=== PATIENT | female | born 1995 | race Caucasian/White ===

== ENCOUNTER 2022-03-25 19:18 | Emergency (ER) | payer BC, SELFPAY ==
[2022-03-25] VITALS (27 sets, daily range): BP systolic 104–123; BP diastolic 65–88; PULSE 86–129; RESP 12–24; TEMP 36.5–36.6; O2SAT 94–98
--- NOTE | 2022-03-25 19:54 | ED.GENADUL_ITS ---
Discharge Plan Disposition Patient Disposition: Home Condition: Improving Discharge Details Clinical Impression: Nausea & vomiting Primary Care Provider: Cecily,Local ED Provider: John Odell Home Meds and New Rx's Prescriptions: New ondansetron 4 mg tablet,disintegrating 4 mg PO TID PRN3 Days Qty: 9 0RF Continued Contol Discharge Instructions Instructions: Acute Nausea and Vomiting (ED) Additional Instructions: Work-up in the ER does not reveal any obvious emergent process. Zofran as directed. Clear liquid diet, advance as tolerated. Please watch for new or worsening symptoms and return to the ER for any concerns. Lastly, I have placed you on the care management list to help expedite outpatient primary care follow- up. Medical Decision Making 27-year-old female who denies significant past medical history, does use marijuana every other day or so, reports similar episode roughly 2 weeks ago, had full resolution of her symptoms, now over the past 12 hours has had nausea and vomiting. Denies fever, sick contacts or bad food exposure. Clinically she appears well, nontoxic, slightly dry. Will obtain IV access, give IV fluid, Zofran, obtain routine screening laboratory values and reassess. Abdomen is soft, nontender, certainly nonsurgical. Patient receiving IV fluid, reports Zofran has helped greatly. Now able to tolerate p.o. intake, a popsicle. Heart rate now 106. Laboratory values reveal mild nonspecific leukocytosis of 13.83. Electrolytes unremarkable. Creatinine 0.8 with a GFR of 104.80. Total bili minimally elevated at 1.1. LFTs otherwise unremarkable, lipase 65. Urinalysis does reveal 40 ketones but no signs of infection. POC negative Repeat heart rate of 93. Patient agreeable to receiving another liter of IV fluid. Discussed work-up with patient. Examination not consistent with acute appendicitis, cholecystitis, etc. At this time no clear indication to obtain emergent CT imaging. Patient reports that she feels well, now asymptomatic. She is comfortable being discharged home with a Zofran take-home pack, I will place her on the care management list of expedite outpatient follow-up. We also discussed strict signs and symptoms to watch for and return immediately. Strict discharge and return precautions were provided. Patient understands, is agreeable to this plan, and has no additional questions or concerns upon discharge. This documentation was generated using [employer] system, please disregard any oddities of phrase or misspellings. Medical Records Medical records reviewed: Yes I reviewed the patient's medical records. Lab Data Lab results reviewed: Yes I reviewed the patient's lab results. Labs: Laboratory Tests Range/Units 03/25/22 03/25/22 03/25/22 19:46 20:00 20:00 WBC (4.4-10.8) 10^3/uL 13.83 H RBC (3.93-5.22) 10^6/uL 4.74 Hgb (11.2-15.7) g/dL 13.8 Hct (36.0-46.0) % 40.4 MCV (80-95) fL 85 MCH (27.0-33.0) pg 29.1 MCHC (32.0-36.0) % 34.2 RDW (11.7-14.6) % 11.9 Plt Count (130-400) 10^3/uL 315 MPV (8.0-11.0) fL 8.7 Immature Gran % 0.4 Neutrophils % 82.9 Lymphocytes % 9.9 Monocytes % 6.5 Eosinophils % 0.1 Basophils % 0.2 Nucleated RBC % (0.0-0.3) % 0.0 Absolute Neutrophils (1.2-6.7) 10^3/uL 11.47 H Absolute Lymphocytes (1.2-3.4) 10^3/uL 1.37 Absolute Monocytes (0.1-0.8) 10^3/uL 0.90 H Absolute Eosinophils (0.0-0.7) 10^3/uL 0.01 Absolute Basophils (0.0-0.2) 10^3/uL 0.03 Sodium (136-145) mmol/L 136 Potassium (3.5-5.1) mmol/L 3.5 Chloride (98-107) mmol/L 102 Carbon Dioxide (21.0-32.0) mmol/L 24.3 Anion Gap (3-11) mmol/L 9.7 BUN (7-18) mg/dL 9 Creatinine (0.55-1.02) mg/dL 0.8 Est GFR (CKD-EPI 2020) (mL/min/1.73m2) 104.80 Glucose (74-106) mg/dL 105 Calcium (8.5-10.1) mg/dL 9.2 Total Bilirubin (0.2-1.0) mg/dL 1.1 H AST (15-37) U/L 19 ALT (14-59) U/L 21 Alkaline Phosphatase (46-116) U/L 88 Total Protein (6.4-8.2) g/dL 8.8 H Albumin (3.4-5.0) g/dL 4.4 Lipase (73-393) U/L 65 Urine Color (Yellow) Yellow Urine Clarity (Clear) Sl Cloudy Urine pH (5-8) 6.0 Ur Specific [place] (1.005-1.025) >= 1.030 H Urine Protein (Negative) mg/dL 30 H Urine Ketones (Negative) mg/dL 40 H Urine Blood (Negative) Trace-intact H Urine Nitrite (Negative) Negative Urine Bilirubin (Negative) Small H Urine Urobilinogen (Up TO 0.2) EU/dL 1.0 H Ur Leukocyte Esterase (Negative) Negative Urine RBC (0-2) HPF 0-2 Urine WBC (0-5) HPF 3-5 Ur Epithelial Cells (Negative) HPF Moderate Urine Crystals (Negative) HPF Negative Urine Bacteria (Negative) HPF Few Urine Casts (Negative) LPF Negative Urine Mucus (Negative) Trace Ur Culture Indicated? No/Sq. Contamination Urine Glucose (Negative) mg/dL Negative HPI General Mode of arrival: ambulatory . Date/Time Provider Initiated Documentation: 03/25/22 19:19 . Limitations to Documentation: no limitations . Information obtained by: patient . History of Present Illness 27 year old F presents to the emergency department with the chief complaint of Nausea and vomiting, described as moderate, with intensity rated at 4. Quality is described as aching (Only after vomiting), and is localized to the abdomen. Patient reports no radiation. Patient started experiencing this hour(s) (12) and it has been constant. No relieving factors improve symptom(s), Eating worsens symptoms . Patient notes other (1 episode of diarrhea). Patient did receive the following treatments prior to arrival, none Related Data Home Medications Medication Instructions Recorded Confirmed Contol 11/01/14 11/01/14 ondansetron 4 mg disintegrating 4 mg PO TID PRN 3 days #9 tabs 03/25/22 tablet Previous Rx's Medication Instructions Recorded ondansetron 4 mg disintegrating 4 mg PO TID PRN 3 days #9 tabs 03/25/22 tablet Allergies Allergy/AdvReac Type Severity Reaction Status Date / Time No Known Allergies Allergy Unverified 11/01/14 16:20 General Stated Complaint: Nausea/Vomit/Diar LOREN: 4 Review of Systems Constitutional Constitutional: Denies fever(s) ENT Ears, Nose, Mouth, and Throat: Denies neck pain Cardiovascular Cardiovascular: Denies chest pain and Denies dyspnea Respiratory Respiratory: Denies cough and Denies dyspnea Gastrointestinal Gastrointestinal: Reports abdominal pain, Reports diarrhea, Reports nausea and Reports vomiting Genitourinary Genitourinary: Denies dysuria and Denies vaginal discharge Musculoskeletal Musculoskeletal: Denies back pain and Denies neck pain Integumentary/Breasts Skin/Breast: Denies rash PFSH All Active Problems (Updated 03/25/22 @ 21:09 by STONEY Peters) Nausea & vomiting (Acute) Social History Smoking/Tobacco Use Status: Never Smoking risk assessment performed?: Yes Drug use: Never Do you feel safe at home: Yes Do you feel safe in your relationship?: Yes Exam Const General: cooperative, healthy appearing, comfortable and no acute distress Orientation: alert and awake HENMT Head: normal to inspection, normocephalic and atraumatic Face and sinus: normal facial exam Mouth: moist mucous membranes abnormal (Slightly dry) Eyes General: appearance normal, both eyes and all related structures Conjunctivae: conjunctivae normal Neck Neck: normal visual inspection, full ROM, no meningeal signs, trachea midline and supple Resp Effort & Inspection: normal respiratory effort and able to speak in complete sentences Auscultation: clear to auscultation bilaterally Cardio Rate: tachycardic (114) Rhythm: regular rhythm GI Inspection: normal to inspection Palpation: soft, not firm, no guarding, no pulsatile masses and nontender Auscultation: normal bowel sounds Back/Spine/Pelvis Back: no CVA tenderness and No back tenderness Skin General skin exam: no rashes or lesions noted Neuro General: patient alert, patient awake, moves all extremities and no focal motor deficits Cognition: normal cognition Speech: speech normal Gait: normal gait Sensory Exam: no sensory deficits noted Psych Appearance: grossly normal Mental Status: mental status grossly normal Course Vital Signs Vital signs: Vital Signs Temperature 36.6 C 03/25/22 19:38 Pulse 129 H 03/25/22 19:38 Respiratory Rate 24 03/25/22 19:38 Blood Pressure 114/88 03/25/22 19:38 Pulse Oximetry 98 03/25/22 19:38 Temperature 36.6 C 03/25/22 19:38 Temperature Source Temporal Artery Scan 03/25/22 19:38 Pulse 129 H 03/25/22 19:38 Respiratory Rate 24 03/25/22 19:38 Blood Pressure 114/88 03/25/22 19:38 Blood Pressure Position Sitting 03/25/22 19:38 Pulse Oximetry 98 03/25/22 19:38 Oxygen Delivery Method Room Air 03/25/22 19:38 Oxygen Flow Rate 0 03/25/22 19:38
[2022-03-25 20:00] LABS: Bilirubin Small (Negative); Blood Trace-intact (Negative); Clarity Sl Cloudy (Clear); Glucose Negative (Negative); Ketones 40 mg/dL (Negative); Leukocyte Esterase Negative (Negative); Nitrite Negative (Negative); Specific Gravity >= 1.030 (1.005-1.025)
[2022-03-25] MEDS: Ondansetron 4 MG/2 ML VIAL IVP (20:07)
[2022-03-25 20:08] LABS: Abs Immature Grans 0.05 10^3/uL (0.0-0.06); Absolute Basophil Count 0.03 10^3/uL (0.0-0.2); Absolute Eosinophil Count 0.01 10^3/uL (0.0-0.7); Absolute Lymphocyte Count 1.37 10^3/uL (1.2-3.4); Absolute Neutrophil Count 11.47 10^3/uL (1.2-6.7); Basophils % 0.2; Eosinophils % 0.1; HCT 40.4 % (36.0-46.0); HGB 13.8 g/dL (11.2-15.7); Immature Grans % 0.4; Lymphocytes % 9.9; MCH 29.1 pg (27.0-33.0); MCHC 34.2 % (32.0-36.0); MCV 85 fL (80-95); MPV 8.7 fL (8.0-11.0); Monocytes % 6.5; Neutrophils % 82.9; Platelet Count 315 10^3/uL (130-400); RBC 4.74 10^6/uL (3.93-5.22); RDW 11.9 % (11.7-14.6); RDW-SD 37.4 fL; WBC 13.83 10^3/uL (4.4-10.8)
[2022-03-25] MEDS: Normal Saline 1,000 ML 1000 ML IV ×2 (20:08→21:26)
[2022-03-25 20:09] LABS: Bacteria Few HPF (Negative); C & S Indicated? No/Sq. Contamination; Casts Negative LPF (Negative); Crystals Negative HPF (Negative); Epithelial Cells Moderate HPF (Negative); Mucus Trace (Negative); RBC 0-2 HPF (0-2)
[2022-03-25 20:22] LABS: ALT 21 U/L (14-59); AST 19 U/L (15-37); Albumin 4.4 g/dL (3.4-5.0); Alkaline Phosphatase 88 U/L (46-116); Anion Gap 9.7 mmol/L (3-11); BUN 9 mg/dL (7-18); Bilirubin, Total 1.1 mg/dL (0.2-1.0); CO2 24.3 mmol/L (21.0-32.0); CREATININE 0.8 mg/dL (0.55-1.02); Calcium 9.2 mg/dL (8.5-10.1); Chloride 102 mmol/L (98-107); Glucose 105 mg/dL (74-106); Lipase 65 U/L (73-393); Potassium 3.5 mmol/L (3.5-5.1); Sodium 136 mmol/L (136-145); Total Protein 8.8 g/dL (6.4-8.2)
[2022-03-25] MEDS: Ondansetron O.D.T. 4 MG TABEF, 3 TABS/BTL PO (21:27)
== END 2022-03-25 23:13 | disposition home or self-care (01) ==
PROVIDERS: Emergency Provider Physician Assistant
DX: R11.2 Nausea with vomiting, unspecified (principal); D72.829 Elevated white blood cell count, unspecified; E80.7 Disorder of bilirubin metabolism, unspecified
CPT/HCPCS: 80053; 81025; 83690; 96361; 96374; 99284; 81003; 81015; 85025; J2405

== ENCOUNTER 2022-09-24 11:57 | Outpatient (REF) | payer BC, SELFPAY ==
--- NOTE | 2022-09-24 11:45 | PAPFT_PTH ---
PATIENT: Ibeth Padgett LOC: [place] U#:[id number] AGE/SX: 27/F ROOM: RE09/24/[address]: Juliocesar Smith DNP : 1995 BED: DIS: 09/24/2022 SPEC #: [id number] RECD: 09/25/22 12:43 STATUS: ALICE REQ #: [id number] VINCENZO: 09/24/22 11:[address]: Juliocesar Webber DEPT: [facility] Cytology RECD BY: Hamida Fonseca Tissues: 1 - CX/ENDOCX FOR PAP SMEARS Procedures: PAP THIN PREP/[facility] Screening Comments: [id number]
== END 2022-09-24 11:58 | disposition home or self-care (01) ==
LOC: LBN 11:57
PROVIDERS: PCP Nurse Practitioner Family; Visit Provider Nurse Practitioner Family
DX: Z12.4 Encounter for screening for malignant neoplasm of cervix (principal)
CPT/HCPCS: 88142

== ENCOUNTER 2024-07-23 13:51 | Emergency (ER) | payer OTHER, BC, SELFPAY ==
[2024-07-23 13:52] VITALS: BP 120/88; PULSE 103; RESP 16; TEMP 37.2; O2SAT 99
--- NOTE | 2024-07-23 14:00 | DI.RAD_ITS ---
Exam(s) XR FOREARM RT XR SHOULDER RT COMPLETE 2+V XR HUMERUS RT EXAM: XR HUMERUS RT CLINICAL HISTORY: pain s/p fall. TECHNIQUE: 2D digital imaging was performed. COMPARISON: CR XR SHOULDER RT COMPLETE 2+V from 07/23/2024 CR XR FOREARM RT from 07/23/2024 FINDINGS: BONES: No acute fracture is present. No bony destructive lesion is seen. The wrist, elbow and shoulde r joints are unremarkable. SOFT TISSUE: Normal. IMPRESSION: Unremarkable radiographs of the right humerus, forearm and shoulder. DATA REPOSITORY: RADIATION DOSE DELIVERED:
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
--- NOTE | 2024-07-23 14:23 | W.EDPROG ---
Date of service: 07/23/24 Time of Service: 14:23 Medical Decision Making I initially signed up to evaluate this patient but I did not see her nor participate in her care. Quality:SDOH Health Related Social Needs: No Data to Display Discharge Plan Discharge Details Chief Complaint: Orthopedic Primary Care Provider: Juliocesar Webber ED Provider: Willie Lyon Home Meds and New Rx's Prescriptions: No Action One-A-Day Women's Complete(vK) 18 mg-400 mcg- 25 mcg tablet 1 tab PO DAILY
[2024-07-23] MEDS: Ibuprofen 600 MG TAB PO (14:56)
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
== END 2024-07-23 15:59 | disposition home or self-care (01) ==
PROVIDERS: Emergency Provider Emergency Medicine; PCP Nurse Practitioner Family
DX: S43.401A Unspecified sprain of right shoulder joint, initial encounter (principal); V18.0XXA Pedal cycle driver injured in noncollision transport accident in nontraffic accident, initial encounter
CPT/HCPCS: 99284; 99283; 00123; 73030; 73060; 73090

== ENCOUNTER 2024-08-21 00:43 | Outpatient (CLI) | payer OTHER, BC, SELFPAY ==
--- NOTE | 2024-08-21 07:45 | DI.MRI_ITS ---
Exam(s) MR UPPER JOINT RT WO EXAM: MR UPPER JOINT RT WO CLINICAL HISTORY: ? torn RTC, sprain rt shoulder, [id number]. TECHNIQUE: Multiplanar multisequence MRI was performed. COMPARISON: CR XR SHOULDER RT COMPLETE 2+V from 07/23/2024 FINDINGS: BONES: There is no evidence of a fracture. There is marrow edema seen in the humeral head which may represent a contusion. There is some flattening of the posterolateral aspect of the humeral head. T his raises a question of a prior anterior shoulder dislocation. Please correlate with the patient's clinical history. JOINTS: The acromioclavicular joint is normal. The glenohumeral joint is normal. No joint effusion is present. TENDONS: Supraspinatus: Unremarkable. Infraspinatus: Unremarkable. Subscapularis: Unremarkable. [place]: Unremarkable. Biceps and [place]: Unremarkable. MUSCLES: Unremarkable. No evidence of muscular fatty atrophy. GLENOID LABRUM: Unremarkable on this noncontrast examination. SOFT TISSUES: Unremarkable. LIGAMENTS: Unremarkable. OTHER: Subacromial and subdeltoid bursae are unremarkable. IMPRESSION: 1. Edema seen in the humeral head particularly posterior laterally with question of flattening of the posterolateral humeral head. This can be seen with a Hill-Sachs deformity and a prior anterior shou lder dislocation. Please correlate with the patient's clinical history. 2. No evidence of a rotator cuff or labral tear on this noncontrast examination. DATA REPOSITORY:
== END 2024-08-21 01:03 ==
LOC: DI 00:43
PROVIDERS: PCP Nurse Practitioner Family; Visit Provider Nurse Practitioner Family
DX: S43.401A Unspecified sprain of right shoulder joint, initial encounter (principal)
CPT/HCPCS: 73221

== ENCOUNTER 2024-10-02 12:34 | Emergency (ER) | payer BC, SELFPAY ==
[2024-10-02] VITALS (31 sets, daily range): BP systolic 101–156; BP diastolic 65–97; PULSE 57–105; RESP 12–33; TEMP 36.8; O2SAT 97–100
--- NOTE | 2024-10-02 12:30 | RT.EKG_ITS ---
APPROVED REPORT Exam: Resting ECG Reason for Exam: chest pain Patient Location: E HR:61 bpm ECG Measurements Heart Rate 61 AXIS [place] 127 P 23 QRSd 85 QRS 59 QT 393 T 35 QTc 397 Conclusion Sinus rhythm...normal P axis, V-rate 60- 99
[2024-10-02] MEDS: Ondansetron 4 MG/2 ML VIAL IVP (13:09)
[2024-10-02] MEDS: Lactated Ringers 1,000 ML 1000 ML IV (13:09)
[2024-10-02] MEDS: LORazepam 20 MG/10 ML VIAL IVP (13:11)
[2024-10-02 13:14] LABS: Abs Immature Grans 0.03 10^3/uL (0.0-0.06); HCT 36.3 % (36.0-46.0); HGB 12.6 g/dL (11.2-15.7); Immature Grans % 0.3 %; MCH 29.5 pg (27.0-33.0); MCHC 34.7 % (32.0-36.0); MCV 85 fL (80-95); MPV 9.4 fL (8.0-11.0); Platelet Count 307 10^3/uL (130-400); RBC 4.27 10^6/uL (3.93-5.22); RDW 12.3 % (11.7-14.6); RDW-SD 36.9 fL; WBC 11.19 10^3/uL (4.4-10.8)
[2024-10-02 13:42] LABS: ALT 34 U/L (14-59); AST 35 U/L (15-37); Albumin 4.3 g/dL (3.4-5.0); Alkaline Phosphatase 65 U/L (46-116); Anion Gap 16.8 mmol/L (3-11); BUN 15 mg/dL (7-18); Bilirubin, Total 1.8 mg/dL (0.2-1.0); CO2 20.2 mmol/L (21.0-32.0); Calcium 9.0 mg/dL (8.5-10.1); Chloride 106 mmol/L (98-107); Estimated GFR 121.49 (mL/min/1.73m2); Glucose 118 mg/dL (74-106); HCG Qual (Serum) Negative; Lipase 21 U/L (<78); Magnesium 2.1 mg/dL (1.8-2.4); Potassium 3.7 mmol/L (3.5-5.1); Sodium 143 mmol/L (136-145); Total Protein 7.7 g/dL (6.4-8.2); Troponin I 4 ng/L (<or=51)
[2024-10-02 13:45] LABS: D-Dimer 166 ng/mlFEU (<500)
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
[2024-10-02] MEDS: Droperidol 5 MG/2 ML VIAL 1.25 MG IVP (13:55)
[2024-10-02] MEDS: Famotidine 20 MG TAB PO (14:20)
[2024-10-02] MEDS: DEXTROSE 5%-0.9% SALINE 1,000 ML 200 ML IV (14:28)
[2024-10-02 14:44] LABS: Troponin I 4 ng/L (<or=51)
--- NOTE | 2024-10-02 15:15 | DI.RAD_ITS ---
Exam(s) XR CHEST 2V PA LATERAL EXAM: XR CHEST 2V PA LATERAL CLINICAL HISTORY: chest pain TECHNIQUE: 2D digital imaging was performed of the chest. Two images were obtained. PA and lateral views were obtained. COMPARISON: No exams were available for comparison FINDINGS: MEDIASTINUM: Normal. HEART: Normal. PULMONARY VASCULATURE: Normal. LUNGS: Clear. PLEURAL SPACE: No pleural effusion or pneumothorax. BONE:Within normal limits for the patient's age. OTHER FINDINGS:Normal. IMPRESSION: No acute pulmonary findings. DATA REPOSITORY: RADIATION DOSE DELIVERED:
== END 2024-10-02 16:29 | disposition home or self-care (01) ==
PROVIDERS: Emergency Provider Student in an Organized Health Care Education/Training Program; PCP Nurse Practitioner Family
DX: R07.9 Chest pain, unspecified (principal); R11.2 Nausea with vomiting, unspecified
CPT/HCPCS: 36415; 80053; 83690; 93005; 96361; 96374; 96375; 99285; 71046; 83735; 84484; 84703; 85025; 85379; 93010; 99284; J1790; J2060; J2405; J7042

== ENCOUNTER 2024-10-03 09:59 | Emergency (ER) | payer BC, SELFPAY ==
[2024-10-03] VITALS (35 sets, daily range): BP systolic 127–153; BP diastolic 60–97; PULSE 74–91; RESP 11–28; TEMP 36.1–36.2; O2SAT 97–100
[2024-10-03 10:27] LABS: BE (Venous) -1 mmol/L (-2-3); HCO3 (Venous) 22 mmol/L (23-28); O2 Sat (Venous) 73 %; TCO2 (Venous) 19 mmol/L (24-29); pCO2 (Venous) 28 mmHg (41-51); pO2 (Venous) 34 mmHg
[2024-10-03 10:29] LABS: Abs Immature Grans 0.03 10^3/uL (0.0-0.06); HCT 36.1 % (36.0-46.0); HGB 12.4 g/dL (11.2-15.7); Immature Grans % 0.3 %; MCH 29.0 pg (27.0-33.0); MCHC 34.3 % (32.0-36.0); MCV 84 fL (80-95); MPV 9.3 fL (8.0-11.0); Platelet Count 302 10^3/uL (130-400); RBC 4.28 10^6/uL (3.93-5.22); RDW 11.9 % (11.7-14.6); RDW-SD 36.4 fL; WBC 9.05 10^3/uL (4.4-10.8)
[2024-10-03] MEDS: Prochlorperazine 10 MG/2 ML VIAL IVP (10:29)
[2024-10-03] MEDS: diphenhydrAMINE 50 MG/ML VIAL 25 MG IVP (10:30)
[2024-10-03] MEDS: Famotidine 20 MG/2 ML VIAL IVP (10:30)
--- NOTE | 2024-10-03 10:30 | RT.EKG_ITS ---
APPROVED REPORT Exam: Resting ECG Reason for Exam: qtc Patient Location: E HR:79 bpm ECG Measurements Heart Rate 79 AXIS [place] 121 P 39 QRSd 79 QRS 58 QT 414 T 14 QTc 476 Conclusion Sinus rhythm, rate 79 No significant interval abnormalities although compared to prior, QTc has increased from 397 to 476ms No STEMI
[2024-10-03 10:46] LABS: ALT 50 U/L (14-59); AST 35 U/L (15-37); Albumin 4.4 g/dL (3.4-5.0); Alkaline Phosphatase 67 U/L (46-116); Anion Gap 16.7 mmol/L (3-11); BUN 13 mg/dL (7-18); Bilirubin, Total 1.5 mg/dL (0.2-1.0); CO2 21.3 mmol/L (21.0-32.0); Calcium 9.2 mg/dL (8.5-10.1); Chloride 103 mmol/L (98-107); Estimated GFR 89.86 (mL/min/1.73m2); Glucose 135 mg/dL (74-106); Lipase 27 U/L (<78); Magnesium 1.8 mg/dL (1.8-2.4); Potassium 3.1 mmol/L (3.5-5.1); Sodium 141 mmol/L (136-145); Total Protein 7.9 g/dL (6.4-8.2)
[2024-10-03] MEDS: DEXTROSE 5%-0.9% SALINE 1,000 ML 125 ML IV (10:53)
[2024-10-03] MEDS: Normal Saline 1,000 ML 1000 ML IV ×2 (11:27→12:44)
[2024-10-03] MEDS: POTASSIUM CHLORIDE 10 MEQ/100 ML BAG 100 MEQ IV_INF (11:45)
[2024-10-03] MEDS: Ketorolac 15 MG/ML VIAL 7.5 MG IVP (12:30)
[2024-10-03 13:39] LABS: Glucose Negative (Negative)
[2024-10-03] MEDS: MYLANTA 30 ML, LIDOCAINE 2% VISCOUS UD 15 ML PO (13:52)
[2024-10-03] MEDS: Scopolamine 1 MG/3 DAYS PATCH TD (14:52)
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
== END 2024-10-03 14:58 | disposition home or self-care (01) ==
PROVIDERS: Emergency Provider Physician Assistant; PCP Nurse Practitioner Family
DX: R11.2 Nausea with vomiting, unspecified (principal); R19.7 Diarrhea, unspecified
CPT/HCPCS: 99284 ×2; 96374; 96375; 36415; 80053; 82805; 83690; 93005; 96361; 81003; 83735; 85025; 93010; J0780; J1200; J1885; J3480; J7042

== ENCOUNTER 2024-10-04 04:57 | Inpatient (IN) | payer BC, OTHER, SELFPAY ==
[2024-10-04] VITALS (25 sets, daily range): BP systolic 120–152; BP diastolic 77–114; PULSE 67–81; RESP 13–24; TEMP 36.4–37.3; O2SAT 97–100
[2024-10-04 06:00] LABS: Abs Immature Grans 0.02 10^3/uL (0.0-0.06); HCT 33.0 % (36.0-46.0); HGB 11.7 g/dL (11.2-15.7); Immature Grans % 0.2 %; MCH 29.5 pg (27.0-33.0); MCHC 35.5 % (32.0-36.0); MCV 83 fL (80-95); MPV 9.4 fL (8.0-11.0); Platelet Count 275 10^3/uL (130-400); RBC 3.96 10^6/uL (3.93-5.22); RDW 11.9 % (11.7-14.6); RDW-SD 36.2 fL; WBC 9.07 10^3/uL (4.4-10.8)
[2024-10-04 06:20] LABS: HCG Qual (Serum) Negative
[2024-10-04] MEDS: Normal Saline 1,000 ML 1000 ML IV (06:20)
[2024-10-04] MEDS: Dexamethasone 4 MG/ML VIAL IVP (06:21)
[2024-10-04] MEDS: Droperidol 5 MG/2 ML VIAL 1.25 MG IVP ×2 (06:21→08:38)
[2024-10-04] MEDS: cefTRIAXone 1 GM/50 ML BAG IVPB (06:21)
[2024-10-04 06:23] LABS: ALT 56 U/L (14-59); AST 37 U/L (15-37); Albumin 4.0 g/dL (3.4-5.0); Alkaline Phosphatase 59 U/L (46-116); Anion Gap 14.3 mmol/L (3-11); BUN 8 mg/dL (7-18); Bilirubin, Total 1.4 mg/dL (0.2-1.0); CO2 19.7 mmol/L (21.0-32.0); Calcium 8.5 mg/dL (8.5-10.1); Chloride 106 mmol/L (98-107); Estimated GFR 126.09 (mL/min/1.73m2); Glucose 136 mg/dL (74-106); Lipase 23 U/L (<78); Potassium 3.2 mmol/L (3.5-5.1); Sodium 140 mmol/L (136-145); Total Protein 7.1 g/dL (6.4-8.2)
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
--- NOTE | 2024-10-04 06:30 | RT.EKG_ITS ---
APPROVED REPORT Exam: Resting ECG Reason for Exam: hypokalemia Patient Location: E HR:71 bpm ECG Measurements Heart Rate 71 AXIS IL 122 P 50 QRSd 81 QRS 53 QT 389 T 27 QTc 422 Conclusion Sinus rhythm...normal P axis, V-rate 60- [address] segment or T wave abnormalities to suggest occlusive MO
[2024-10-04 06:34] LABS: Glucose Negative (Negative)
[2024-10-04 06:44] LABS: Magnesium 1.9 mg/dL (1.8-2.4)
--- NOTE | 2024-10-04 07:28 | W.EDPROG ---
Date of service: 10/04/24 Time of Service: 07:28 Medical Decision Making In brief, this is a 29-year-old female patient, this is her third visit for nausea with vomiting in the setting of a recent UTI. At the time that I took over her care, she had received droperidol and dexamethasone to good effect on her nausea. It seems that the patient's nausea at home is not well-controlled by Zofran, Compazine, or Phenergan. She had a laboratory evaluation that was reassuring without leukocytosis, anemia, or thrombocytopenia. Potassium is slightly low and was orally repleted, is not worsening compared to yesterday's labs. No evidence of kidney dysfunction, bilirubin slightly elevated to 1.4 but no other liver enzyme abnormalities. Urinalysis with ketones but no ongoing infectious findings. The patient's disposition is pending oral challenge and reevaluation. Anticipate that this patient would benefit from oral Haldol given her significant improvement on multiple ED visits with droperidol. QTc was evaluated and found not to be prolonged. Additionally, the patient is concerned that her antibiotic for her UTI may be contributing, anticipate transition to Keflex. - On reassessment, the patient remains nauseated, and given that this is her third presentation and her symptoms have not improved with appropriate intravenous medications I feel it is reasonable to expand her workup and obtained a CT abdomen pelvis. This shows evidence of cholecystitis with gallbladder wall thickening, small amount of sludge, no echogenic stones appreciated. Given the concerning CT findings I am concerned for cholecystitis and reached out to general surgery. They will admit the patient in conjunction with the hospitalist service, we provided Zosyn while she was here in the emergency department and anticipate that she will be taken for surgical intervention likely tomorrow. The patient was transferred to the floor without incident and remained hemodynamically appropriate while under my care. Mahsa Glass MD Discharge Plan Disposition Patient Disposition: Admit to [facility] Condition: Stable Discharge Details Clinical Impression: Nausea vomiting and diarrhea, Cholecystitis Primary Care Provider: Juliocesar Webber ED Provider: Mahsa Glass Home Meds and New Rx's Prescriptions: No Action One-A-Day Women's Complete(vK) 18 mg-400 mcg- 25 mcg tablet 1 tab PO DAILY nitrofurantoin monohyd/m-cryst 100 mg capsule 200 mg PO DAILY ondansetron 4 mg tablet,disintegrating 4 mg PO Q6H PRN famotidine [Pepcid] 20 mg tablet 20 mg PO BID Qty: 14 0RF prochlorperazine maleate [Compazine] 10 mg tablet 10 mg PO Q6H PRNQty: 20 0RF promethazine 25 mg suppository 25 mg DC Q6H PRNQty: 12 0RF potassium chloride [K-Tab] 20 mEq tablet extended release 20 meq PO DAILY Qty: 10 0RF POCUS Exam (ED) Limited Gallbladder Exam DATE OF EXAM: 10/04/24 TIME OF EXAM: 09:39 PROVIDER THAT PERFORMED THE STUDY: Mahsa Glass REASON FOR VISIT: Nausea/vomiting VISUALIZED STRUCTURES: Common bile duct, Gallbladder, Gallbladder wall and Liver PERTINENT FINDINGS/IMPRESSION: Sludge in gallbladder and Thickened gallbladder wall; No gallstones and No Pericholecystic fluid Exam complete
--- NOTE | 2024-10-04 08:15 | DI.CT_ITS ---
Exam(s) CT ABDOMEN PELVIS W EXAM: CT ABDOMEN PELVIS W CLINICAL HISTORY: N/V/D TECHNIQUE: Imaging Protocol: Axial computed tomography images with coronal and sagittal reformatted images were created and reviewed. CONTRAST MATERIAL: Intravenous: Omnipaque 350 Contrast volume:75 mL Oral: No COMPARISON: No exams were available for comparison FINDINGS: ABDOMEN: Lung Bases: There is a tiny right pleural effusion. There is atelectasis in the lung bases. Liver: Normal density. No measurable mass. Portal, Superior Mesenteric, and Splenic Veins: Unremarkable. Gallbladder and Biliary Tract: There is enhancement of the wall of the gallbladder. No gallstones are present. There is pericholecystic fluid present. There is no biliary ductal dilatation. Pancreas: Normal density, no abnormal calcifications or inflammatory process. Spleen: Normal. Adrenals: No masses seen. Kidneys: Normal size, contour and axis. No radiodense stones or obstructive uropathy. There is a 6 mm fat density lesion in the midpole of the right kidney likely reflecting a benign lesion such as an angiomyolipoma. No follow-up is recommended. There is a circum aortic left renal vein. Abdominal Aorta: Abdominal portion non-dilated. Bowel: No obstruction or bowel wall thickening. Appendix is unremarkable. Peritoneal Cavity: There is a small amount of pelvic ascites. No free air. Lymph Nodes: Within normal limits. Bones: Within normal limits for the patient's age. Soft Tissues: Unremarkable. PELVIS: Bladder: Symmetric distention, no gross wall thickening. Reproductive Organs: Unremarkable as visualized. Lymph Nodes: Within normal limits. Bones: Within normal limits for the patient's age. IMPRESSION: 1. Enhancement of the wall of the gallbladder with pericholecystic fluid. No biliary ductal dilatation or gallstones are seen. Cholecystitis should be considered. Gallbladder ultrasound is recommended for further evaluation. 2. Small amount of pelvic ascites. 3. Small right pleural effusion. RADIATION DOSE DELIVERED: 501.15mGy.cm Total DLP DATA REPOSITORY: All CT scans at this facility are submitted to the National Radiology Data Registry (NRDR) Dose Index Registry (DIR) with the [employer] (ACR). RADIATION OPTIMIZATION: All CT scans at this facility use at least one of these dose optimization techniques: automated exposure control; mA and/or kV adjustment per patient size (includes targeted exams where dose is matched to clinical indication); or iterative reconstruction.
[2024-10-04] MEDS: diphenhydrAMINE 50 MG/ML VIAL 25 MG IVP (08:37)
[2024-10-04] MEDS: Normal Saline - Diluent 50 ML VIAL IJ (08:48)
[2024-10-04] MEDS: Omnipaque 350 MG/ML 100 ML BTL IJ (08:52)
[2024-10-04] MEDS: PIPERACILLIN/TAZO 4.5 GM in Normal Saline 100 ML IVPB (10:35)
[2024-10-04] MEDS: Lidocaine 2% Viscous 15 ML CUP (11:54)
--- NOTE | 2024-10-04 11:55 | W.PC.ACHO ---
Registration Status: REG ER Primary Language: Preferred Language: German ED Information & Data Chief Complaint Nausea/Vomit/Diar 10/04/24 06:29 Triage Note arrives via POV from home, 10/04/24 05:00 here for recheck of symptoms . persistent nausea and dry heaving. started morning. took compazine around 230am and threw up 10 mins later. tried supository but no relief. started having diarrhea this morning as well which is new. has diffuse abdominal pain Medical / Surgical History (Last Reviewed 10/02/24 @ 13:51 by Juan French MD) Adopted Dysmenorrhea Acne Knee pain Astigmatism of left eye Most Recent Vital Signs Temperature 36.8 C 10/04/24 05:04 Temperature Source Tympanic 10/04/24 05:04 Pulse 76 10/04/24 10:31 Pulse 75 10/04/24 10:50 Respiratory Rate 19 10/04/24 10:50 Blood Pressure 151/108 H 10/04/24 10:16 Blood Pressure Mean 117 10/04/24 10:31 Blood Pressure Position Sitting 10/04/24 05:04 Pulse Oximetry 99 10/04/24 10:31 Oxygen Delivery Method Room Air 10/04/24 05:04 Oxygen Flow Rate 0 10/04/24 05:00 Pain Level 6 10/04/24 05:04 Allergies No Known Allergies Allergy (Unverified 10/04/24 05:48) Precautions Isolation Standard precaution 10/04/24 05:04 Active Medications Generic Name Dose Route Start Last Admin Trade Name Bearq PRN Reason Stop Dose Admin Iohexol 100 ml 10/04/24 09:00 10/04/24 08:52 Omnipaque 350 Mg/Ml 100 Ml Btl IJ 11/03/24 23:59 100 ml DIRECTED CHRIS Administration Sodium Chloride 50 ml 10/04/24 09:00 10/04/24 08:48 Normal Saline - Diluent 50 Ml Vial IJ 50 ml .FOR DI USE CHRIS Administration IV IV Catheter Type [Right Peripheral IV Antecubital] IV Catheter Gauge [Right 20 Antecubital] Diet Orders Category Date Time Status Nothing Per Oral [DIET] Nutrition 10/04/24 10:21 Active Diagnostics 10/04/24 10/04/24 Range/Units 06:25 05:40 WBC 9.07 (4.4-10.8) 10^3/uL RBC 3.96 (3.93-5.22) 10^6/uL Hgb 11.7 (11.2-15.7) g/dL Hct 33.0 L (36.0-46.0) % MCV 83 (80-95) fL MCH 29.5 (27.0-33.0) pg MCHC 35.5 (32.0-36.0) % RDW 11.9 (11.7-14.6) % Plt Count 275 (130-400) 10^3/uL MPV 9.4 (8.0-11.0) fL Immature Gran % 0.2 % Neutrophils % 73.8 % Lymphocytes % 20.1 % Monocytes % 5.6 % Eosinophils % 0.0 % Basophils % 0.3 % Nucleated RBC % 0.0 (0.0-0.3) % Absolute Neutrophils 6.69 (1.2-6.7) 10^3/uL Absolute Lymphocytes 1.82 (1.2-3.4) 10^3/uL Absolute Monocytes 0.51 (0.1-0.8) 10^3/uL Absolute Eosinophils 0.00 (0.0-0.7) 10^3/uL Absolute Basophils 0.03 (0.0-0.2) 10^3/uL VBG Lactate 1.3 (<or=2.0) mmol/L Sodium 140 (136-145) mmol/L Potassium 3.2 L (3.5-5.1) mmol/L Chloride 106 (98-107) mmol/L Carbon Dioxide 19.7 L (21.0-32.0) mmol/L Anion Gap 14.3 H (3-11) mmol/L BUN 8 (7-18) mg/dL Creatinine 0.6 (0.55-1.02) mg/dL Est GFR (CKD-EPI 2020) 126.09 (mL/min/1.73m2) Glucose 136 H (74-106) mg/dL Calcium 8.5 (8.5-10.1) mg/dL Magnesium 1.9 (1.8-2.4) mg/dL Total Bilirubin 1.4 H (0.2-1.0) mg/dL AST 37 (15-37) U/L ALT 56 (14-59) U/L Alkaline Phosphatase 59 (46-116) U/L Total Protein 7.1 (6.4-8.2) g/dL Albumin 4.0 (3.4-5.0) g/dL Lipase 23 (<78) U/L Serum HCG, Qual Negative Urine Color Yellow (Yellow) Urine Clarity Clear (Clear) Urine pH 5.5 (5-8) Ur Specific [place] >= 1.030 H (1.005-1.025) Urine Protein Trace (Neg-Trace) mg/dL Urine Ketones 40 H (Negative) mg/dL Urine Blood Negative (Negative) Urine Nitrite Negative (Negative) Urine Bilirubin Small H (Negative) Urine Urobilinogen 0.2 (Up to 0.2) mg/dL Ur Leukocyte Esterase Negative (Negative) Urine Glucose Negative (Negative) mg/dL 10/04/24 06:25 Urine Culture - Pending Urine - Clean Catch Olgfm-[id number] Documentation POC Urine Test Start: 10/04/24 05:54 Freq: .Urine Test Status: Active Protocol: Activity Type Activity Date Activity User E-sign Co-sign Detail Recorded Client Recorded Date Recorded By Document 10/04/24 06:58 SOFIE [id number] 10/04/24 06:58 SOFIE Intake and Output - 24 Hour Total 10/04/24 04:57 thru 10/04/24 11:33 Intake Total 1150 Balance 1150 Weight 75.296 kg Intake: IV 1150 Other: Stool Size Moderate Stool Characteristics Liquid Emesis Description Retching Bile Falls Risk Assessment History of Falls No History 10/04/24 05:04 Contributing Factors No Factors 10/04/24 05:04 Ambulatory Aids Independent 10/04/24 05:04 Tubes/Lines None 10/04/24 05:04 Gait Evaluation No gait disturbance 10/04/24 05:04 Cognition No cognitive impairment 10/04/24 05:04 Fall Total Score 0 10/04/24 05:04 Level of Risk Standard/Low Risk 10/04/24 05:04 v v v v v v v v v Sending and/or Receiving Nurses: Please use comment section below to note any information pertinent to the patient hand-off not included above. Information / Comments: report received, all questions answered. Report received from: report received from ANA Head @[id number]
[2024-10-04] MEDS: Lactated Ringers 1,000 ML 125 ML IV ×2 (12:45→22:41)
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
[2024-10-04] MEDS: PIPERACILLIN/TAZO 3.375 GM in Normal Saline 50 ML IVPB ×2 (15:46→22:40)
[2024-10-04] MEDS: Ondansetron 4 MG/2 ML VIAL IVP (17:55)
[2024-10-04] MEDS: Normal Saline Flush 10 ML SYR (18:53)
[2024-10-04] MEDS: LORazepam 20 MG/10 ML VIAL IVP (19:00)
[2024-10-04] MEDS: Benzocaine/Menthol LOZG 15/BOX 1 EACH SUC (20:03)
--- NOTE | 2024-10-05 | DI.US_ITS ---
Exam(s) US ABDOMEN EXAM: US ABDOMEN CLINICAL HISTORY: abdominal pain TECHNIQUE: Ultrasound abdomen performed using standard protocol. COMPARISON: CT CT ABDOMEN PELVIS W from 10/04/2024 FINDINGS: LIVER: Normal size and echogenicity. Focal area of fat near the falciform ligament. GALLBLADDER: No evidence of cholelithiasis. Mild wall thickening. No visible edema within the wall no pericholecystic fluid identified. TORRES'S SIGN: Negative. BILIARY SYSTEM: No intrahepatic or extrahepatic biliary ductal dilation. KIDNEYS: Kidneys are symmetric in size. No evidence of renal calculi. No evidence of hydronephrosis. No renal mass or cyst identified. PANCREAS: Normal where visualized. SPLEEN: Not enlarged. ABDOMINAL AORTA AND IVC: Visualized portions normal caliber. ASCITES: None seen. IMPRESSION: Mild gallbladder wall thickening. No evidence of pericholecystic fluid or stones. DATA REPOSITORY:
[2024-10-05] MEDS: LORazepam 20 MG/10 ML VIAL IVP ×6 (01:31→22:43)
[2024-10-05] MEDS: Ondansetron 4 MG/2 ML VIAL IVP ×4 (01:32→22:43)
[2024-10-05 01:58] VITALS: BP 150/97; PULSE 65; RESP 16; TEMP 36.4; O2SAT 100
[2024-10-05] MEDS: PIPERACILLIN/TAZO 3.375 GM in Normal Saline 50 ML IVPB ×4 (04:24→22:43)
[2024-10-05] MEDS: Normal Saline Flush 10 ML SYR IVP ×7 (04:25→22:44)
[2024-10-05 07:04] LABS: Abs Immature Grans 0.03 10^3/uL (0.0-0.06); HCT 34.4 % (36.0-46.0); HGB 12.5 g/dL (11.2-15.7); Immature Grans % 0.3 %; MCH 30.3 pg (27.0-33.0); MCHC 36.3 % (32.0-36.0); MCV 83 fL (80-95); MPV 9.4 fL (8.0-11.0); Platelet Count 250 10^3/uL (130-400); RBC 4.13 10^6/uL (3.93-5.22); RDW 11.7 % (11.7-14.6); RDW-SD 35.4 fL; WBC 8.93 10^3/uL (4.4-10.8)
[2024-10-05 07:08] VITALS: BP 148/97; PULSE 68; RESP 17; TEMP 36.6; O2SAT 100
[2024-10-05 07:35] LABS: ALT 63 U/L (14-59); AST 29 U/L (15-37); Albumin 4.1 g/dL (3.4-5.0); Alkaline Phosphatase 59 U/L (46-116); Anion Gap 10.4 mmol/L (3-11); BUN 7 mg/dL (7-18); Bilirubin, Total 1.6 mg/dL (0.2-1.0); CO2 25.6 mmol/L (21.0-32.0); Calcium 9.1 mg/dL (8.5-10.1); Chloride 102 mmol/L (98-107); Estimated GFR 121.49 (mL/min/1.73m2); Glucose 115 mg/dL (74-106); Potassium 3.3 mmol/L (3.5-5.1); Sodium 138 mmol/L (136-145); Total Protein 7.2 g/dL (6.4-8.2)
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
[2024-10-05] MEDS: Lactated Ringers 1,000 ML 125 ML IV ×2 (09:38→20:08)
--- NOTE | 2024-10-05 11:09 | PGE_ITS ---
Date of Service Date of service: 10/05/24 Time of Service: 11:09 Assessment and Plan Assessment and plan (1) Nausea & vomiting: Status: Acute Assessment and plan: - Initially thought movement cholecystitis - Ultrasound without pericholecystic fluid or stones - Was started on Zosyn, will continue - Discussed with general surgery, agreed no surgical intervention at this time - Advance diet as tolerated Subjective Subjective Interval history since last seen: Patient states that she is happy her ultrasound did not show requirement of surgical intervention and that she is having her diet advanced. Otherwise she has no other complaints or concerns at this time. Exam Narrative Exam Narrative: Well-appearing female laying in bed in no acute distress, ANO x 4, heart regular rhythm, lungs good auscultation bilaterally, abdomen soft, nontender, nondistended Objective Last Vital Signs Temp 97.9 F 10/05/24 07:08 Pulse 68 10/05/24 07:08 Resp 17 10/05/24 07:08 BP 148/97 H 10/05/24 07:08 Pulse Ox 100 10/05/24 07:08 Laboratory Results - last 24 hr 10/05/24 06:46 WBC 8.93 RBC 4.13 Hgb 12.5 Hct 34.4 L MCV 83 MCH 30.3 MCHC 36.3 H RDW 11.7 Plt Count 250 MPV 9.4 Immature Gran % 0.3 Neutrophils % 68.1 Lymphocytes % 24.0 Monocytes % 7.4 Eosinophils % 0.0 Basophils % 0.2 Nucleated RBC % 0.0 Absolute Neutrophils 6.08 Absolute Lymphocytes 2.14 Absolute Monocytes 0.66 Absolute Eosinophils 0.00 Absolute Basophils 0.02 Sodium 138 Potassium 3.3 L Chloride 102 Carbon Dioxide 25.6 Anion Gap 10.4 BUN 7 Creatinine 0.7 Est GFR (CKD-EPI 2020) 121.49 Glucose 115 H Calcium 9.1 Total Bilirubin 1.6 H AST 29 ALT 63 H Alkaline Phosphatase 59 Total Protein 7.2 Albumin 4.1 PAWSS Have you Been Recently Intoxicated or Drunk Within the Last 30 days?: No Have you Ever Experienced Previous Episodes of Alcohol Withdrawal?: No Have you ever Experienced Withdrawal Seizures?: No Have you ever Experienced Delirium Tremens(DT)s?: No Have you ever undergone Alcohol Rehabilitation Treatment (i.e, inpt ot outpatient treatment programs)?: No Have you ever Experienced Blackouts?: No Have you ever Combined Alcohol with other Downers within the last 90 days?: No Have you ever Combined Alcohol with any other Substance of Abuse during the last 90 days?: No Positive Blood Alcohol level on Presentation? [PCS.BAL]: No Evidence of Increased Autonomic Activity (i.e. HR>120, tremor, sweating, agitation, nausea)?: No Result: 0 Time Spent with Patient Time Spent with Patient: >50 minutes Time was spent: preparing to see the patient(eg.review tests), obtaining and/or reviewing separately otained hiistory, ordering medications,tests, procedures, referring, communicating with other health infant childcare provider, indepentently interpreting results, counseling the patient and care coordination
[2024-10-05 12:22] VITALS: BP 154/103; PULSE 69; RESP 17; TEMP 35.4; O2SAT 100
[2024-10-05 12:30] VITALS: BP 144/95
[2024-10-05 15:12] VITALS: BP 137/84; PULSE 74; RESP 17; TEMP 37.2; O2SAT 100
--- NOTE | 2024-10-05 16:11 | PGE_ITS ---
Date of Service Date of service: 10/05/24 Time of Service: 16:12 Assessment and Plan Assessment and plan (1) Nausea vomiting and diarrhea: Status: Acute Assessment and plan: I reviewed her ultrasound today personally, and although there is some mild gallbladder wall thickening, there is no evidence of any pericholecystic fluid, nor there are any signs of gallstones. Combined with her physical exam, I think the likelihood of acute cholecystitis is extremely low here. I think is reasonable to continue trialing a diet and give this a few more days to see how it evolves. Subjective Subjective Interval history since last seen: Ibeth says she is feeling a little bit better today, but certainly still has ongoing retching and nausea. Exam GI Other: Abdomen is soft, not distended. She is not very tender. Certainly not any more in the right upper quadrant compared to other areas. Objective Last Vital Signs Temp 99.0 F 10/05/24 15:12 Pulse 74 10/05/24 15:12 Resp 17 10/05/24 15:12 BP 137/84 10/05/24 15:12 Pulse Ox 100 10/05/24 15:12 Laboratory Results - last 24 hr 10/05/24 06:46 WBC 8.93 RBC 4.13 Hgb 12.5 Hct 34.4 L MCV 83 MCH 30.3 MCHC 36.3 H RDW 11.7 Plt Count 250 MPV 9.4 Immature Gran % 0.3 Neutrophils % 68.1 Lymphocytes % 24.0 Monocytes % 7.4 Eosinophils % 0.0 Basophils % 0.2 Nucleated RBC % 0.0 Absolute Neutrophils 6.08 Absolute Lymphocytes 2.14 Absolute Monocytes 0.66 Absolute Eosinophils 0.00 Absolute Basophils 0.02 Sodium 138 Potassium 3.3 L Chloride 102 Carbon Dioxide 25.6 Anion Gap 10.4 BUN 7 Creatinine 0.7 Est GFR (CKD-EPI 2020) 121.49 Glucose 115 H Calcium 9.1 Total Bilirubin 1.6 H AST 29 ALT 63 H Alkaline Phosphatase 59 Total Protein 7.2 Albumin 4.1 PAWSS Have you Been Recently Intoxicated or Drunk Within the Last 30 days?: No Have you Ever Experienced Previous Episodes of Alcohol Withdrawal?: No Have you ever Experienced Withdrawal Seizures?: No Have you ever Experienced Delirium Tremens(DT)s?: No Have you ever undergone Alcohol Rehabilitation Treatment (i.e, inpt ot outpatient treatment programs)?: No Have you ever Experienced Blackouts?: No Have you ever Combined Alcohol with other Downers within the last 90 days?: No Have you ever Combined Alcohol with any other Substance of Abuse during the last 90 days?: No Positive Blood Alcohol level on Presentation? [PCS.BAL]: No Evidence of Increased Autonomic Activity (i.e. HR>120, tremor, sweating, agitation, nausea)?: No Result: 0 Time Spent with Patient Time Spent with Patient: 25-34 minutes Time was spent: preparing to see the patient(eg.review tests), referring, communicating with other health hearing care practitioner, indepentently interpreting results and counseling the patient
[2024-10-05 20:11] VITALS: BP 148/101; PULSE 74; RESP 16; TEMP 37.5; O2SAT 99
[2024-10-06] VITALS (7 sets, daily range): BP systolic 110–157; BP diastolic 83–114; PULSE 78–93; RESP 15–22; TEMP 36.4–37; O2SAT 96–100
[2024-10-06] MEDS: PIPERACILLIN/TAZO 3.375 GM in Normal Saline 50 ML IVPB ×4 (04:04→22:31)
[2024-10-06] MEDS: LORazepam 20 MG/10 ML VIAL IVP ×3 (04:04→20:19)
[2024-10-06] MEDS: Ondansetron 4 MG/2 ML VIAL IVP ×2 (04:04→20:19)
[2024-10-06] MEDS: Normal Saline Flush 10 ML SYR IVP ×5 (04:05→20:21)
[2024-10-06] MEDS: Lactated Ringers 1,000 ML 125 ML IV ×2 (05:56→16:54)
[2024-10-06] MEDS: MORPHine 2 MG/ML SYR 1 MG IVP ×2 (09:27→20:20)
--- NOTE | 2024-10-06 10:35 | PGE_ITS ---
Date of Service Date of service: 10/06/24 Time of Service: 10:35 Assessment and Plan Assessment and plan (1) Nausea & vomiting: Status: Acute Assessment and plan: - Initially thought acute cholecystitis - Ultrasound without pericholecystic fluid or stones - Was started on Zosyn, will continue - Discussed with general surgery, agreed no surgical intervention at this time - Advance diet as tolerated Subjective Subjective Interval history since last seen: Patient states that she is feeling better and was able to sleep overnight, but that she is continuing to have difficulty with tolerating fluid intake resulting in nausea and vomiting. Exam Narrative Exam Narrative: Well-appearing female laying in bed in no acute distress, ANO x 4, heart regular rhythm, lungs good auscultation bilaterally, abdomen soft, nontender, nondistended GI Other: Abdomen is soft, not distended. She is not very tender. Certainly not any more in the right upper quadrant compared to other areas. Objective Last Vital Signs Temp 98.2 F 10/06/24 09:21 Pulse 82 10/06/24 09:21 Resp 15 10/06/24 09:21 BP 147/97 H 10/06/24 09:21 Pulse Ox 98 10/06/24 09:21 PAWSS Have you Been Recently Intoxicated or Drunk Within the Last 30 days?: No Have you Ever Experienced Previous Episodes of Alcohol Withdrawal?: No Have you ever Experienced Withdrawal Seizures?: No Have you ever Experienced Delirium Tremens(DT)s?: No Have you ever undergone Alcohol Rehabilitation Treatment (i.e, inpt ot outpatient treatment programs)?: No Have you ever Experienced Blackouts?: No Have you ever Combined Alcohol with other Downers within the last 90 days?: No Have you ever Combined Alcohol with any other Substance of Abuse during the last 90 days?: No Positive Blood Alcohol level on Presentation? [PCS.BAL]: No Evidence of Increased Autonomic Activity (i.e. HR>120, tremor, sweating, agitation, nausea)?: No Result: 0 Time Spent with Patient Time Spent with Patient: >50 minutes Time was spent: preparing to see the patient(eg.review tests), obtaining and/or reviewing separately otained hiistory, ordering medications,tests, procedures, referring, communicating with other health career services assistant, indepentently interpreting results, counseling the patient and care coordination
--- NOTE | 2024-10-06 14:22 | CHAPLAIN ---
I had a brief visit with Ibeth and explained my role and offered support. Ibeth asked for some ice water which I got for her. She had to visitors with her, maybe her mom and grandmother?
--- NOTE | 2024-10-06 16:07 | PDOC.CMPRO ---
Date of service: 10/06/24 Time of Service: 16:07 Care Management Progress Note Progress Note Text Progress Note Text: Ibeth was ambulating with her Mom in the hallway when CM met with her. She was smiling and stated that she continues to feel she is slowly improving. She still has some nausea when eating but has been burping instead of vomiting today, which she views as a huge improvement. Ibeth received a dose of IV morphine for pain today which she stated worked well. She also reported that the Ativan she is receiving has been very effective in controlling her nausea, better than some of the other antiemetics. Ibeth's vital signs are stable, her WBC has normalized and she remains afebrile. Hopefully she will be able to discharge home soon, once she is able to tolerate her diet a bit better. Discharge Potential Discharge Needs: PCP F/U Appt and Surgical F/U Appt Anticipated Barriers to Discharge: Medical Status Patient/Family Education Needs: Review discharge instructions, discuss Ask Me Three Transportation: Private vehicle Plan: Anticipate Ibeth will be discharged home with no new services when medically cleared. She will follow up with her PCP and plan of care and transport with a friend or family member. CM will follow and continue to support discharge planning. Social Determinants of Health Screening Social Determinants of health last assessed in clinic: 10/06/24 Will the Patient Participate in the Screening?: Yes Do you worry about having a steady place to live?: no Problems where you live: no known problems In the past 12 months, have you had to go without electric, gas, oil or water in your home?: no 1. Within the past 12 months, we worried whether our food would run out before we got money to buy more.: Never true 2. Within the past 12 months, the food we bought just didn't last and we didn't have money to get more.: Never true Has lack of transportation kept you from medical appointments or from doing things needed for daily living?: no Has anyone in your life made you feel unsafe or unsupported?: no How hard is it for you to pay for the very basics like food, housing, medical care, and heating? Would you say it is:: Not hard at all Do you want help finding or keeping work or a job?: I do not need or want help If for any reason you need help with day-to-day activities such as bathing, preparing meals, shopping, managing finances, etc., do you get the help you need?: I don?t need any help How often do you feel lonely or isolated from those around you?: Never Do you speak a language other than [place] at home?: Yes Does the patient want assistance with any of the above?: No Health Related Social Needs Health related social needs: education (Z55.6) Health related social needs details: no needs
[2024-10-06] MEDS: Mylanta Suspension 30 ML CUP PO (20:17)
[2024-10-07] MEDS: Lactated Ringers 1,000 ML 125 ML IV ×2 (01:45→12:13)
[2024-10-07] MEDS: PIPERACILLIN/TAZO 3.375 GM in Normal Saline 50 ML IVPB ×4 (04:13→22:06)
[2024-10-07] MEDS: Normal Saline Flush 10 ML SYR IVP ×4 (04:14→13:26)
[2024-10-07] MEDS: Ondansetron 4 MG/2 ML VIAL IVP ×2 (05:16→11:09)
[2024-10-07] MEDS: LORazepam 20 MG/10 ML VIAL IVP ×3 (05:18→15:20)
[2024-10-07] MEDS: Mylanta Suspension 30 ML CUP PO ×2 (06:25→11:07)
[2024-10-07] MEDS: MORPHine 2 MG/ML SYR 1 MG IVP ×2 (06:25→13:25)
[2024-10-07 07:18] VITALS: BP 137/98; PULSE 84; RESP 16; TEMP 37.1; O2SAT 99
--- NOTE | 2024-10-07 08:32 | W.PM.PROGNOT ---
Date of Service Date of service: 10/07/24 Time of Service: 08:32 Assessment and Plan Assessment and plan (1) Nausea & vomiting: Status: Acute Assessment and plan: - Initially thought acute cholecystitis - Ultrasound without pericholecystic fluid or stones - Was started on Zosyn, will continue - Discussed with general surgery, agreed no surgical intervention at this time - Advance diet as tolerated, has had some improvement in p.o. intake with full liquid diet on the evening of 10/06/2024, but did vomit on the morning of 10/07/2024 Subjective Subjective Interval history since last seen: Patient did experience some improvement and abdominal discomfort and diet intake with full liquid diet last evening, but she did state that she vomited earlier this morning though nausea has improved with Zofran. Exam Narrative Exam Narrative: Well-appearing female laying in bed in no acute distress, ANO x 4, heart regular rhythm, lungs good auscultation bilaterally, abdomen soft, nontender, nondistended GI Other: Abdomen is soft, not distended. She is not very tender. Certainly not any more in the right upper quadrant compared to other areas. Objective Last Vital Signs Temp 98.8 F 10/07/24 07:18 Pulse 84 10/07/24 07:18 Resp 16 10/07/24 07:18 BP 137/98 H 10/07/24 07:18 Pulse Ox 99 10/07/24 07:18 PAWSS Have you Been Recently Intoxicated or Drunk Within the Last 30 days?: No Have you Ever Experienced Previous Episodes of Alcohol Withdrawal?: No Have you ever Experienced Withdrawal Seizures?: No Have you ever Experienced Delirium Tremens(DT)s?: No Have you ever undergone Alcohol Rehabilitation Treatment (i.e, inpt ot outpatient treatment programs)?: No Have you ever Experienced Blackouts?: No Have you ever Combined Alcohol with other Downers within the last 90 days?: No Have you ever Combined Alcohol with any other Substance of Abuse during the last 90 days?: No Positive Blood Alcohol level on Presentation? [PCS.BAL]: No Evidence of Increased Autonomic Activity (i.e. HR>120, tremor, sweating, agitation, nausea)?: No Result: 0 Time Spent with Patient Time Spent with Patient: >50 minutes Time was spent: preparing to see the patient(eg.review tests), obtaining and/or reviewing separately otained hiistory, ordering medications,tests, procedures, referring, communicating with other health care transitions manager, indepentently interpreting results, counseling the patient and care coordination
--- NOTE | 2024-10-07 08:55 | CMPROGNOTE_ITS ---
Date of service: 10/07/24 Time of Service: 08:56 Care Management Progress Note Progress Note Text Progress Note Text: Ibeth was lying in bed when CM met with her. Yesterday she seemed to be feeling a little better and was able to tolerate some food and fluids. Unfortunately she vomited again this morning so has decided to slow down on the oral intake. She is still requiring the use of IV morphine for pain control and IV Ativan to control the nausea. Ibeth had just been medicated when CM came to see her and indicated that she really just wanted to nap and rest at that point. CM kept the visit brief and will follow up with Ibeth tomorrow. Discharge Potential Discharge Needs: PCP F/U Appt Anticipated Barriers to Discharge: Medical Status Patient/Family Education Needs: Review discharge instructions, discuss Ask Me Three Transportation: Private vehicle Plan: Anticipate Ibeth will be discharged home with no new services when medically cleared. She will follow up with her PCP and plan of care and transport with a friend or family member. CM will follow and continue to support discharge planning. Social Determinants of Health Screening Social Determinants of health last assessed in clinic: 10/07/24 Will the Patient Participate in the Screening?: Yes Do you worry about having a steady place to live?: no Problems where you live: no known problems In the past 12 months, have you had to go without electric, gas, oil or water in your home?: no 1. Within the past 12 months, we worried whether our food would run out before we got money to buy more.: Never true 2. Within the past 12 months, the food we bought just didn't last and we didn't have money to get more.: Never true Has lack of transportation kept you from medical appointments or from doing things needed for daily living?: no Has anyone in your life made you feel unsafe or unsupported?: no How hard is it for you to pay for the very basics like food, housing, medical care, and heating? Would you say it is:: Not hard at all Do you want help finding or keeping work or a job?: I do not need or want help If for any reason you need help with day-to-day activities such as bathing, preparing meals, shopping, managing finances, etc., do you get the help you need?: I don?t need any help How often do you feel lonely or isolated from those around you?: Never Do you speak a language other than [place] at home?: Yes Does the patient want assistance with any of the above?: No Health Related Social Needs Health related social needs: education (Z55.6) Health related social needs details: no needs
[2024-10-07 11:20] VITALS: BP 137/93; PULSE 84; RESP 14; TEMP 36.6; O2SAT 97
[2024-10-07 12:57] VITALS: BP 160/95
--- NOTE | 2024-10-07 14:10 | PHACLINREV_ITS ---
Pharmacy Admission Review Admission Clinical Review Admission Pharmacy Review: Cholecystitis (Acute) Nausea vomiting and diarrhea (Acute) Nausea & vomiting (Acute) No Known Allergies Allergy (Unverified 10/04/24 05:48) Resuscitation Status Full Code Height 5 ft 3 in Weight 74.253 kg Pharmacy Admission Review Renal Dosing Renal Dosing: BUN 7 mg/dL (7-18) 10/05/24 06:46 Creatinine 0.7 mg/dL (0.55-1.02) 10/05/24 06:46 Medications needing adjustments: Reviewed (CrCl 116.52 mL/min) List of meds needing interventions: Current medications are okay Anticoagulation Anticoagulation: Hgb 12.5 g/dL (11.2-15.7) 10/05/24 06:46 Hct 34.4 % (36.0-46.0) L 10/05/24 06:46 Plt Count 250 10^3/uL (130-400) 10/05/24 06:46 Creatinine 0.7 mg/dL (0.55-1.02) 10/05/24 06:46 DVT Prophylaxis: N/A Opiate Usage Evaluate Pain Scale/Pains Meds: Reviewed (morphine 1mg IVP q4h PRN - 3mg/24hrs) Scheduled Bowel Reg ordered if on Opiates?: No (PRN docusate/Miralax) Relevant Labs Relevant Labs: Sodium 138 mmol/L (136-145) 10/05/24 06:46 Potassium 3.3 mmol/L (3.5-5.1) L 10/05/24 06:46 Chloride 102 mmol/L (98-107) 10/05/24 06:46 Magnesium 1.9 mg/dL (1.8-2.4) 10/04/24 05:40 Electrolytes, C-Reactive P, ESR: Reviewed (No new labs for today) Cardiac Review Cardiac Review: Blood Pressure 160/95 1257 Blood Pressure 137/93 1120 Blood Pressure 137/98 0718 BP, HR, EF%: Reviewed (HR WNL) QTc Review QTc: Reviewed (422 from 10/04/24) IV to PO Switch IV Medications: Reviewed (lorazepam, morphine, ondansetron and Zosyn - had e pisode of vomiting this morning, per provider will keep PRNs as IV for now) Home Meds Home Med List reviewed: Reviewed Relevent Home Meds Not ordered & why?: famotidine, multivitamin, potassium, prochlorperazine (PRN) and promethazine (PRN) Current Meds Current Medication Order Review: Intervened Comments: added IV admission order Pharmacy Antibiotic Review Relevant Labs: WBC 8.93 10^3/uL (4.4-10.8) 10/05/24 06:46 Temperature 36.6 C Temperature 37.1 C Pharmacy Antibiotic Activity: C/S review and Reviewed, no change Comments: Patient is on Zosyn, day 3, for possible cholecystitis.
[2024-10-07 15:38] VITALS: BP 161/117; PULSE 78; RESP 15; TEMP 36.6; O2SAT 100
[2024-10-07] MEDS: Acetaminophen 250 mg/Aspirin 250 mg/Caffeine 65 mg TAB 2 EACH PO (16:46)
[2024-10-07 19:40] VITALS: BP 170/103; PULSE 72; RESP 19; TEMP 37; O2SAT 97
[2024-10-07 23:26] VITALS: BP 113/80; PULSE 83; RESP 20; TEMP 36.5; O2SAT 97
--- NOTE | 2024-10-08 | DI.CT_ITS ---
Exam(s) CT ABDOMEN PELVIS W EXAM: CT ABDOMEN PELVIS W CLINICAL HISTORY: N/V, not improving. TECHNIQUE: Imaging Protocol: Axial computed tomography images with coronal and sagittal reformatted images were created and reviewed CONTRAST MATERIAL: Intravenous: Omnipaque 350 Contrast volume:75 ml Oral: no COMPARISON: CT CT ABDOMEN PELVIS W from 10/04/2024 FINDINGS: ABDOMEN and PELVIS: Lung Bases: No acute findings. Liver: Normal density. No suspicious mass. Gallbladder and biliary tract: No radiodense calculus. No wall thickening or pericholecystic fluid. No biliary dilation. Pancreas: Normal density. No abnormal calcifications or inflammatory process. No evidence of mass. Spleen: Normal. Kidneys: Normal size, contour and axis. No radiodense stones. No obstructive uropathy. No suspicious masses seen. Adrenal glands: No masses seen. Vasculature: Abdominal aorta non-dilated. Soft tissues: Unremarkable. Bladder: No gross wall thickening. No calculi.No focal mass. Bowel: No obstruction. No bowel wall thickening. Appendix normal. Some fluid in the right side of the colon and transverse colon. Descending and rectosigmoid are decompressed. Stomach and small bowel are nondilated. Peritoneal cavity: No ascites. No focal collection. No mesenteric inflammatory response. No free air. Bones: Unremarkable for age. Reproductive organs: Unremarkable. Lymph nodes: No pathologically enlarged lymph nodes. IMPRESSION:: No acute abnormality in the abdomen or pelvis. No evidence of bowel obstruction. The liver and gallbladder now appear normal. RADIATION DOSE DELIVERED: 538.91mGy.cm Total DLP DATA REPOSITORY: All CT scans at this facility are submitted to the National Radiology Data Registry (NRDR) Dose Index Registry (DIR) with the [employer] (ACR). RADIATION OPTIMIZATION: All CT scans at this facility use at least one of these dose optimization techniques: automated exposure control; mA and/or kV adjustment per patient size (includes targeted exams where dose is matched to clinical indication); or iterative reconstruction.
[2024-10-08] MEDS: Ondansetron 4 MG/2 ML VIAL IVP ×3 (02:50→17:25)
[2024-10-08] MEDS: Normal Saline Flush 10 ML SYR IVP ×3 (02:51→21:52)
[2024-10-08] MEDS: LORazepam 20 MG/10 ML VIAL IVP ×3 (03:38→16:40)
[2024-10-08] MEDS: PIPERACILLIN/TAZO 3.375 GM in Normal Saline 50 ML IVPB ×4 (04:55→21:52)
[2024-10-08 05:02] VITALS: BP 148/107; PULSE 91; RESP 16; TEMP 36.6; O2SAT 100
[2024-10-08] MEDS: Acetaminophen 250 mg/Aspirin 250 mg/Caffeine 65 mg TAB 2 EACH PO ×2 (06:31→15:08)
[2024-10-08 08:12] VITALS: BP 135/100; PULSE 79; RESP 17; TEMP 36.9; O2SAT 97
[2024-10-08] MEDS: Lactated Ringers 1,000 ML 125 ML IV ×2 (08:36)
[2024-10-08 08:54] LABS: Abs Immature Grans 0.01 10^3/uL (0.0-0.06); HCT 39.2 % (36.0-46.0); HGB 14.2 g/dL (11.2-15.7); Immature Grans % 0.1 %; MCH 29.0 pg (27.0-33.0); MCHC 36.2 % (32.0-36.0); MCV 80 fL (80-95); MPV 9.1 fL (8.0-11.0); Platelet Count 314 10^3/uL (130-400); RBC 4.89 10^6/uL (3.93-5.22); RDW 11.7 % (11.7-14.6); RDW-SD 33.8 fL; WBC 8.29 10^3/uL (4.4-10.8)
[2024-10-08 09:10] LABS: ALT 47 U/L (14-59); AST 20 U/L (15-37); Albumin 4.2 g/dL (3.4-5.0); Alkaline Phosphatase 60 U/L (46-116); Anion Gap 15.4 mmol/L (3-11); BUN 4 mg/dL (7-18); Bilirubin, Total 2.7 mg/dL (0.2-1.0); CO2 21.6 mmol/L (21.0-32.0); Calcium 9.0 mg/dL (8.5-10.1); Chloride 97 mmol/L (98-107); Estimated GFR 121.49 (mL/min/1.73m2); Glucose 106 mg/dL (74-106); Magnesium 1.9 mg/dL (1.8-2.4); Sodium 134 mmol/L (136-145); Total Protein 7.5 g/dL (6.4-8.2)
[2024-10-08] MEDS: Omnipaque 350 MG/ML 100 ML BTL 75 ML IJ (09:14)
[2024-10-08] MEDS: Normal Saline - Diluent 50 ML VIAL IJ (09:15)
[2024-10-08 09:16] LABS: Potassium 2.8 mmol/L (3.5-5.1)
--- NOTE | 2024-10-08 09:20 | PDOC.CMPRO ---
Date of service: 10/08/24 Time of Service: 09:20 Care Management Progress Note Progress Note Text Progress Note Text: Ibeth was sitting up in bed visiting with her when CM met with her. She looked much better than she has in the past few days and confirmed that she is feeling better as well. She reported that her pain is controlled on oral analgesics but that she is still having nausea and has been vomiting. Ibeth is back on a diet of ice chips to rest her gut and hopes to be able to slowly introduce more fluids and food in the next day or so. Discharge Potential Discharge Needs: PCP F/U Appt Anticipated Barriers to Discharge: None Identified Patient/Family Education Needs: Review discharge instructions, discuss Ask Me Three Transportation: Private vehicle Plan: Anticipate Ibeth will be discharged home with no new services when medically cleared. She will follow up with her PCP and plan of care and transport with a friend or family member. CM will follow and continue to support discharge planning. Social Determinants of Health Screening Social Determinants of health last assessed in clinic: 10/08/24 Will the Patient Participate in the Screening?: Yes Do you worry about having a steady place to live?: no Problems where you live: no known problems In the past 12 months, have you had to go without electric, gas, oil or water in your home?: no 1. Within the past 12 months, we worried whether our food would run out before we got money to buy more.: Never true 2. Within the past 12 months, the food we bought just didn't last and we didn't have money to get more.: Never true Has lack of transportation kept you from medical appointments or from doing things needed for daily living?: no Has anyone in your life made you feel unsafe or unsupported?: no How hard is it for you to pay for the very basics like food, housing, medical care, and heating? Would you say it is:: Not hard at all Do you want help finding or keeping work or a job?: I do not need or want help If for any reason you need help with day-to-day activities such as bathing, preparing meals, shopping, managing finances, etc., do you get the help you need?: I don?t need any help How often do you feel lonely or isolated from those around you?: Never Do you speak a language other than [place] at home?: Yes Does the patient want assistance with any of the above?: No Health Related Social Needs Health related social needs: education (Z55.6) Health related social needs details: no needs
[2024-10-08 09:46] LABS: Lab Add On Test DONE
[2024-10-08 09:49] LABS: Bilirubin, Direct 0.4 mg/dL (0.0-0.2)
[2024-10-08] MEDS: POTASSIUM CHLORIDE 20 MEQ/100 ML BAG 50 MEQ IV_INF ×2 (10:58→13:19)
[2024-10-08 11:25] VITALS: BP 133/106; PULSE 77; RESP 16; TEMP 37; O2SAT 98
--- NOTE | 2024-10-08 11:35 | W.PM.PROGNOT ---
Date of Service Date of service: 10/08/24 Time of Service: 11:35 Assessment and Plan Assessment and plan (1) Intractable nausea and vomiting: Status: Acute Assessment and plan: - Initially thought acute cholecystitis - Ultrasound without pericholecystic fluid or stones - Was started on Zosyn, will continue - Discussed with general surgery, agreed no surgical intervention at this time - Patient initially showed some improvement with advancing of diet to liquids, but over the last 24 hours has vomited with any fluid intake - Repeat CBC and CMP without findings for cause, though patient was noted as being hypokalemic which will be replaced with IV - Patient did have isolated elevated bilirubin 2.7 (conjugated 0.4), though without signs of liver injury, bile duct obstruction, or anemia, this rules out potential hepatitis, cholelithiasis or [place] disease - Isolated elevated bili likely just secondary to ongoing nausea and vomiting - Plan for patient to be strict n.p.o. for at least the next 24 hours to allow appropriate bowel rest Subjective Subjective Interval history since last seen: Patient stated that she was vomiting last night and this morning, and that episodes were all related to attempted fluid intake. Upon further discussion with the patient and her , patient does have a history of vomiting with minor illnesses, and patient even acknowledges that it does not take much for her to have a vomit reflex. It was also explained that in checking her labs and repeat CT abdomen pelvis that there were no acute abnormalities with the exception of low potassium (which was due to the vomiting but not the cause), and an isolated elevated bilirubin that everything appeared to be normal. They understand the plan to again make her n.p.o. and give her bowel rest for at least the next 24 hours before attempting to p.o. challenge again tomorrow Exam Narrative Exam Narrative: Fatigued, but well-appearing female laying in bed in no acute distress, ANO x 4, heart regular rhythm, lungs good auscultation bilaterally, abdomen with mild diffuse tenderness worse in the epigastric region without rebound or guarding Objective Last Vital Signs Temp 98.6 F 10/08/24 11:25 Pulse 77 10/08/24 11:25 Resp 16 10/08/24 11:25 BP 133/106 H 10/08/24 11:25 Pulse Ox 98 10/08/24 11:25 Laboratory Results - last 24 hr 10/08/24 08:47 WBC 8.29 RBC 4.89 Hgb 14.2 Hct 39.2 MCV 80 MCH 29.0 MCHC 36.2 H RDW 11.7 Plt Count 314 MPV 9.1 Immature Gran % 0.1 Neutrophils % 65.0 Lymphocytes % 26.3 Monocytes % 8.0 Eosinophils % 0.2 Basophils % 0.4 Nucleated RBC % 0.0 Absolute Neutrophils 5.39 Absolute Lymphocytes 2.18 Absolute Monocytes 0.66 Absolute Eosinophils 0.02 Absolute Basophils 0.03 Sodium 134 L Potassium 2.8 L* Chloride 97 L Carbon Dioxide 21.6 Anion Gap 15.4 H BUN 4 L Creatinine 0.7 Est GFR (CKD-EPI 2020) 121.49 Glucose 106 Calcium 9.0 Magnesium 1.9 Total Bilirubin 2.7 H Conjugated Bilirubin 0.4 H AST 20 ALT 47 Alkaline Phosphatase 60 Total Protein 7.5 Albumin 4.2 Add-On Test Request DONE PAWSS Have you Been Recently Intoxicated or Drunk Within the Last 30 days?: No Have you Ever Experienced Previous Episodes of Alcohol Withdrawal?: No Have you ever Experienced Withdrawal Seizures?: No Have you ever Experienced Delirium Tremens(DT)s?: No Have you ever undergone Alcohol Rehabilitation Treatment (i.e, inpt ot outpatient treatment programs)?: No Have you ever Experienced Blackouts?: No Have you ever Combined Alcohol with other Downers within the last 90 days?: No Have you ever Combined Alcohol with any other Substance of Abuse during the last 90 days?: No Positive Blood Alcohol level on Presentation? [PCS.BAL]: No Evidence of Increased Autonomic Activity (i.e. HR>120, tremor, sweating, agitation, nausea)?: No Result: 0 Time Spent with Patient Time Spent with Patient: >50 minutes Time was spent: preparing to see the patient(eg.review tests), obtaining and/or reviewing separately otained hiistory, ordering medications,tests, procedures, referring, communicating with other health pharmacy care coordinator, indepentently interpreting results, counseling the patient and care coordination
[2024-10-08 15:33] VITALS: BP 144/109; PULSE 81; RESP 16; TEMP 37.2; O2SAT 99
[2024-10-08 19:21] VITALS: BP 134/78; PULSE 79; RESP 16; TEMP 37.4; O2SAT 98
[2024-10-09 00:03] VITALS: BP 116/78; PULSE 84; RESP 16; TEMP 36.7; O2SAT 98
[2024-10-09] MEDS: Lactated Ringers 1,000 ML 125 ML IV ×3 (00:57→17:29)
[2024-10-09 03:55] VITALS: BP 131/99; PULSE 71; RESP 16; TEMP 36.3; O2SAT 95
[2024-10-09] MEDS: PIPERACILLIN/TAZO 3.375 GM in Normal Saline 50 ML IVPB ×3 (04:02→18:30)
[2024-10-09] MEDS: Normal Saline Flush 10 ML SYR IVP (05:32)
[2024-10-09] MEDS: LORazepam 20 MG/10 ML VIAL IVP (06:28)
[2024-10-09 07:25] VITALS: BP 140/107; PULSE 83; RESP 16; TEMP 36.2; O2SAT 97
--- NOTE | 2024-10-09 09:10 | PDOC.CMPRO ---
Date of service: 10/09/24 Time of Service: 09:10 Care Management Progress Note Progress Note Text Progress Note Text: Ibeth was sitting up in bed the first time CM met with her today. She was smiling and informed CM that she is feeling much improved.. Her nausea and pain are both better. She has been tolerating a clear liquid diet and commented that she is really hungry and hoped to be able to eat solid food soon. CM spoke with the provider who ordered a regular diet. Ibeth particularly wanted a piece of toast which she was given, CM checked back later and she had eaten half of the toast and felt fine. She has ordered a regular diet for dinner and is looking forward to that. Discharge Potential Discharge Needs: PCP F/U Appt Anticipated Barriers to Discharge: Medical Status Patient/Family Education Needs: Review discharge instructions, discuss Ask Me Three Transportation: Private vehicle Plan: Anticipate Ibeth will be discharged home with no new services when medically cleared. She will follow up with her PCP and plan of care and transport with a friend or family member. CM will follow and continue to support discharge planning. Social Determinants of Health Screening Social Determinants of health last assessed in clinic: 10/09/24 Will the Patient Participate in the Screening?: Yes Do you worry about having a steady place to live?: no Problems where you live: no known problems In the past 12 months, have you had to go without electric, gas, oil or water in your home?: no 1. Within the past 12 months, we worried whether our food would run out before we got money to buy more.: Never true 2. Within the past 12 months, the food we bought just didn't last and we didn't have money to get more.: Never true Has lack of transportation kept you from medical appointments or from doing things needed for daily living?: no Has anyone in your life made you feel unsafe or unsupported?: no How hard is it for you to pay for the very basics like food, housing, medical care, and heating? Would you say it is:: Not hard at all Do you want help finding or keeping work or a job?: I do not need or want help If for any reason you need help with day-to-day activities such as bathing, preparing meals, shopping, managing finances, etc., do you get the help you need?: I don?t need any help How often do you feel lonely or isolated from those around you?: Never Do you speak a language other than [place]ak[place] at home?: Yes Does the patient want assistance with any of the above?: No Health Related Social Needs Health related social needs: education (Z55.6) Health related social needs details: no needs
[2024-10-09] MEDS: Acetaminophen 250 mg/Aspirin 250 mg/Caffeine 65 mg TAB 2 EACH PO (12:03)
[2024-10-09 14:20] LABS: HCT 39.6 % (36.0-46.0); HGB 14.2 g/dL (11.2-15.7); MCH 29.5 pg (27.0-33.0); MCHC 35.9 % (32.0-36.0); MCV 82 fL (80-95); MPV 9.0 fL (8.0-11.0); Platelet Count 307 10^3/uL (130-400); RBC 4.81 10^6/uL (3.93-5.22); RDW 11.7 % (11.7-14.6); RDW-SD 35.3 fL; WBC 10.32 10^3/uL (4.4-10.8)
[2024-10-09 14:44] VITALS: BP 132/97; PULSE 91; RESP 18; TEMP 36.2; O2SAT 96
[2024-10-09 15:55] LABS: Anion Gap 11.4 mmol/L (3-11); BUN 6 mg/dL (7-18); CO2 22.6 mmol/L (21.0-32.0); Calcium 8.8 mg/dL (8.5-10.1); Chloride 100 mmol/L (98-107); Estimated GFR 121.49 (mL/min/1.73m2); Glucose 116 mg/dL (74-106); Potassium 3.0 mmol/L (3.5-5.1); Sodium 134 mmol/L (136-145)
[2024-10-09 20:03] VITALS: BP 119/88; PULSE 98; RESP 16; TEMP 36.7; O2SAT 98
[2024-10-10 00:08] VITALS: BP 113/81; PULSE 76; RESP 16; TEMP 36.8; O2SAT 99
[2024-10-10] MEDS: PIPERACILLIN/TAZO 3.375 GM in Normal Saline 50 ML IVPB ×2 (00:17→05:34)
[2024-10-10] MEDS: Lactated Ringers 1,000 ML 125 ML IV (03:04)
[2024-10-10 04:30] VITALS: BP 112/81; PULSE 87; RESP 16; TEMP 36.6; O2SAT 97
[2024-10-10] MEDS: Ondansetron 4 MG/2 ML VIAL IVP (07:16)
[2024-10-10] MEDS: Normal Saline Flush 10 ML SYR IVP ×2 (07:17→09:39)
[2024-10-10 07:23] VITALS: BP 138/94; PULSE 72; RESP 16; TEMP 36.2; O2SAT 99
[2024-10-10 09:52] LABS: Magnesium 2.0 mg/dL (1.8-2.4)
[2024-10-10 09:57] LABS: ALT 40 U/L (14-59); AST 24 U/L (15-37); Albumin 3.9 g/dL (3.4-5.0); Alkaline Phosphatase 53 U/L (46-116); Anion Gap 9.9 mmol/L (3-11); BUN 5 mg/dL (7-18); Bilirubin, Total 2.3 mg/dL (0.2-1.0); CO2 23.1 mmol/L (21.0-32.0); Calcium 8.8 mg/dL (8.5-10.1); Chloride 102 mmol/L (98-107); Estimated GFR 121.49 (mL/min/1.73m2); Glucose 118 mg/dL (74-106); Potassium 3.4 mmol/L (3.5-5.1); Sodium 135 mmol/L (136-145); Total Protein 7.1 g/dL (6.4-8.2)
[2024-10-10 12:16] VITALS: BP 148/102; PULSE 70; RESP 16; TEMP 36.9; O2SAT 100
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
--- NOTE | 2024-10-10 14:03 | PDOC.CMDIS ---
Date of service: 10/10/24 Time of Service: 14:04 LACE Index Scoring Tool Questions: Length of Stay (in days): 4 - 6 Was the patient admitted via the E.D.?: Yes E.D. Visits: 5 Answers: Total Score: 11 Risk of Readmission: High Risk Care Management Discharge Plan Reason for Hospitalization: Abdominal Pain Discharge Plan: Discharge home via private vehicle with family. Follow up with PCP and community providers. No new services are ordered prior to discharge. Patient/Family Education Needs: Review discharge instructions and plan to follow up after discharge. Discuss ask me three. SDOH Health Related Social Needs: Health related social needs education Health related social needs details no needs Health related social needs details: no needs
== END 2024-10-10 13:35 | disposition home or self-care (01) | DRG 445 ==
LOC: ER 11:53 → MS 10-05 06:43
PROVIDERS: Family Medicine; Student in an Organized Health Care Education/Training Program; Admitting Provider Hospitalist; Emergency Provider Emergency Medicine; PCP Nurse Practitioner Family; Responsible Provider Family Medicine; Visit Provider Hospitalist
DX: K81.0 Acute cholecystitis (principal); N39.0 Urinary tract infection, site not specified; R19.7 Diarrhea, unspecified; F12.90 Cannabis use, unspecified, uncomplicated; R11.2 Nausea with vomiting, unspecified; R74.01 Elevation of levels of liver transaminase levels; E80.4 Gilbert syndrome; R03.0 Elevated blood-pressure reading, without diagnosis of hypertension; E87.6 Hypokalemia; Z79.899 Other long term (current) drug therapy
CPT/HCPCS: 00123; 36415; 76705; 80048; 80053; 81025; 83690; 85027; 93005; 96361; 96365; 96366; 96367; 96375; 96376; 99285; 74177; 76700; 81003; 82248; 83605; 83735; 84703; 85025; 87086; 93010; 99222; 99233; 99239; J0696; J1100; J1200; J1790; J2060; J2270; J2405; J2543; J3480; J3490

== ENCOUNTER 2024-10-16 08:24 | Outpatient (CLI) | payer BC, SELFPAY ==
[2024-10-16 13:11] LABS: ALT 30 U/L (14-59); AST 17 U/L (15-37); Albumin 3.9 g/dL (3.4-5.0); Alkaline Phosphatase 84 U/L (46-116); Anion Gap 8.3 mmol/L (3-11); BUN 14 mg/dL (7-18); Bilirubin, Total 0.6 mg/dL (0.2-1.0); CO2 26.7 mmol/L (21.0-32.0); Calcium 8.8 mg/dL (8.5-10.1); Chloride 104 mmol/L (98-107); Estimated GFR 126.09 (mL/min/1.73m2); Glucose 102 mg/dL (74-106); Potassium 4.1 mmol/L (3.5-5.1); Sodium 139 mmol/L (136-145); Total Protein 7.3 g/dL (6.4-8.2)
== END 2024-10-16 08:25 | disposition home or self-care (01) ==
PROVIDERS: PCP Nurse Practitioner Family; Referring Provider Nurse Practitioner Family; Visit Provider Nurse Practitioner Family
DX: R74.8 Abnormal levels of other serum enzymes (principal)
CPT/HCPCS: 36415; 80053